=== PATIENT | male | born 1980 | race Caucasian/White ===

== ENCOUNTER 2021-06-17 16:40 | Emergency (ER) | payer OTHER ==
[2021-06-17 17:03] LABS: BASOPHIL 0.3 % (0-2); EOSINOPHIL 2.1 % (0-5); HCT 42.5 % (42.0-52.0); HGB 13.7 g/dl (13.2-18.0); LYMPHOCYTE 29.3 % (15-48); MCH 29.2 pg (25.0-31.0); MCHC 32.2 g/dL (32.0-36.0); MCV 90.6 fL (78.0-100.0); MONOCYTE 10.7 % (0-12); MPV 9.5 fL (6.0-9.5); NEUTROPHIL 57.3 % (41-80); NRBC 0; PLT 267 K/uL (150-400); RBC 4.69 M/uL (4.70-6.00); RDW 12.8 % (11.5-14.0)
[2021-06-17 17:11] LABS: INR 1.03 (0.9-1.2); PROTHROMBIN TIME 12.9 SECONDS (11.8-13.4); PTT 25.2 SECONDS (24.4-34.7)
[2021-06-17 17:21] LABS: ALBUMIN 3.7 g/dL (3.4-5.0); BILIRUBIN - TOTAL 0.3 mg/dL (0.2-1.0); BUN/CREAT RATIO (CALC) 18.1 RATIO; CREATININE 0.94 mg/dL (0.67-1.17); GLOBULIN (CALCULATION) 3.1 g/dL; POTASSIUM 4.6 mmol/L (3.5-5.1); TOTAL PROTEIN 6.8 g/dL (6.4-8.2)
[2021-06-17 18:37] LABS: BILIRUBIN NEGATIVE (NEGATIVE); BLOOD TRACE-INTACT Ery/uL (NEGATIVE); COLOR YELLOW (YELLOW); GLUCOSE (U) NORMAL (NORMAL); LEUKOCYTES NEGATIVE Leu/uL (NEGATIVE); NITRITE NEGATIVE (NEGATIVE); PROTEIN 1+ mg/dL (NEGATIVE); SPECIFIC GRAVITY >=1.030 (1.001-1.030); UROBILINOGEN 0.2 mg/dL (0.2-1.0)
[2021-06-17 18:38] LABS: CLARITY SLIGHTLY HAZY (CLEAR)
[2021-06-17 18:52] LABS: AMORPHOUS URATES CRYSTALS TRACE; SPERM PRESENT; URINARY RBC RARE; URINARY WBC RARE
== END 2021-06-17 21:24 | disposition other institution (70) ==
LOC: FER 16:40
PROVIDERS: Internal Medicine
DX: T71.162A Asphyxiation due to hanging, intentional self-harm, initial encounter (principal); E87.2 Acidosis
CPT/HCPCS: 31500; 36415; 36600; 70450; 71045; 72125; 80053; 81001; 82550; 82553; 82803; 83605; 85025; 85610; 85730; 87040; 87088; 93005; J2250; J2704; J3010; J7030; U0002